=== PATIENT | male | born 1985 | race Caucasian/White ===

== ENCOUNTER 2025-05-08 13:50 | Outpatient (CLI) | payer OTHER, SELFPAY ==
--- NOTE | 2025-05-08 14:00 | CRLHL7_ITS ---
For Patients: As a result of the Century Cures Act, medical imaging exams and procedure reports are released immediately into your electronic medical record. You may view this report before your referring provider. If you have questions, please contact your health care provider. INDICATION: Right scrotal lump COMPARISON: none TECHNIQUE: Chaudhari scale imaging was performed of the scrotum. In addition color Doppler and spectral Doppler analysis was performed of the testes. FINDINGS: The testes demonstrate normal arterial and venous blood flow on color Doppler and spectral Doppler analysis. The testes have uniform echogenicity with no evidence of a suspicious mass or area of inflammation. The right testis measures 4.8 x 2.3 x 3.2 cm in size and the left testis measures 4.8 x 2.4 x 2.8 cm. The epididymis appears normal bilaterally. Right varicocele is present with a venous structure measuring 4.5 millimeters. No flow is present within this vein. IMPRESSION: Normal testicles. Right varicocele thrombosis noted. Dictated by Slim Freeman MD @ 05/09/2025 6:42:10 AM (Electronically Signed)
== END 2025-05-08 13:51 | disposition home or self-care (01) ==
LOC: US 13:52
PROVIDERS: PCP Internal Medicine; Visit Provider Internal Medicine
DX: I86.1 Scrotal varices (principal)
CPT/HCPCS: 76870; 93976